=== PATIENT | male | born 1940 | race Caucasian/White ===

== ENCOUNTER 2017-03-30 00:45 | Inpatient (IN) | payer OTHER ==
[~2017-03-30] VITALS: Ht 182.9 cm; Wt 98.4 kg
--- NOTE | 2017-03-30 00:45 | NUR ---
Patient being evaluated by physician at [facility].
[2017-03-30 00:50] VITALS: BP 142/86
--- NOTE | 2017-03-30 00:55 | NUR ---
BIBA TO ER BED 8
[2017-03-30] MEDS ORDERED: ALBUTEROL SULFATE/IPRATROPIU 3 ML SOL IH ONE (01:05)
[2017-03-30] MEDS ORDERED: methylPREDNISolone SS 125 MG in WATER STERILE 2 ML IV ONE (01:05)
--- NOTE | 2017-03-30 01:08 | NUR ---
Edd morse in [facility] - 03/30/17 at 0405 by MEDMAYA Patient being evaluated by physician at bedside.
[2017-03-30] MEDS ORDERED: methylPREDNISolone SS 125 MG/2 ML VIAL ONE (01:09)
[2017-03-30 01:24] LABS: LYMPHOCYTES # (AUTO) 2.4 K/uL (2.0-11.5)
[2017-03-30 01:26] LABS: BASOPHILS # (AUTO) 0.3 K/uL (0.00-0.22); BASOPHILS % (AUTO) 2.1 % (0.0-2.0); EOSINOPHILS # (AUTO) 0.4 K/uL (0-0.4); EOSINOPHILS % (AUTO) 3.1 % (0.0-4.0); LYMPHOCYTES % (AUTO) 19.6 % (20.5-51.1); MEAN CORPUSCULAR HEMOGLOBIN 24 pg (27-31); MEAN CORPUSCULAR HGB CONC 30 g/dL (33-37); MEAN CORPUSCULAR VOLUME 79 fL (80-94); MONOCYTES # (AUTO) 0.8 K/uL (0.8-1.0); MONOCYTES % (AUTO) 6.8 % (1.7-9.3); NEUTROPHILS # (AUTO) 8.2 K/uL (1.8-7.7); NEUTROPHILS % (AUTO) 68.4 % (42.2-75.2); PLATELET COUNT (AUTO) 471 K/uL (140-450); RED BLOOD CELL COUNT(AUTO) 2.44 MIL/uL (4.20-6.10); RED CELL DISTRIBUTION WIDTH 19.1 % (11.6-13.7); WHITE BLOOD COUNT (AUTO) 12.1 K/uL (4.8-10.8)
[2017-03-30 01:36] LABS: ALBUMIN 3.6 g/dL (3.4-5.0); ANION GAP 18.2 (8-16); ASPARTATE AMINOTRANSFERASE 25 U/L (15-37); CARBON DIOXIDE 23.1 mmol/L (21-32); CHLORIDE 106 mmol/L (98-107); CREATININE 1.6 mg/dL (0.7-1.3); POTASSIUM 4.3 mmol/L (3.5-5.1); SODIUM SERUM 143 mmol/L (136-145); TOTAL BILIRUBIN 0.3 mg/dL (0.0-1.0); UREA NITROGEN, BLOOD 33 mg/dL (7-18)
[2017-03-30] MEDS ORDERED: AMLO10TA PO (01:46)
[2017-03-30] MEDS ORDERED: TAMS0.4C96 PO (01:46)
[2017-03-30] MEDS ORDERED: FENO145T PO (01:46)
[2017-03-30] MEDS ORDERED: LOSA50TA39 PO (01:46)
[2017-03-30] MEDS ORDERED: INSU100S5 IJ (01:46)
[2017-03-30] MEDS ORDERED: LANTUS SUBQ (01:46)
[2017-03-30] MEDS ORDERED: ATOR40TA40 PO (01:46)
[2017-03-30] MEDS ORDERED: METF500T PO (01:46)
[2017-03-30 01:57] LABS: GLUCOSE 466 mg/dL (74-106)
[2017-03-30 01:58] LABS: HEMATOCRIT 19.4 % (36-52); HEMOGLOBIN 5.8 g/dL (12.0-18.0)
[2017-03-30] MEDS ORDERED: INSULIN HUMAN REGULAR 100 UNITS/ML 10 ML VIAL SUBQ ONE (02:05)
--- NOTE | 2017-03-30 02:07 | NUR ---
INCREASED IPAP TO [address] RG
[2017-03-30] MEDS ORDERED: FUROSEMIDE 40 MG/4 ML VIAL IVP ONE (02:25)
--- NOTE | 2017-03-30 03:02 | NUR ---
Patient will be admitted to care of DR. RAY. Admited to TELEMETRY]. Will go to room 122 B Belongings list completed.
--- NOTE | 2017-03-30 03:45 | NUR ---
REPORT GIVEN TO ANDRE SPRAGUE.
[2017-03-30] MEDS ORDERED: NACL 0.9% 1,000 ML IV SCH (03:46)
[2017-03-30] MEDS ORDERED: MORPHINE SULFATE 2 MG/ML SYR IVP PRN (03:50)
[2017-03-30] MEDS ORDERED: ONDANSETRON 4 MG/2 ML VIAL IM/IVP PRN (03:50)
[2017-03-30] MEDS ORDERED: ACETAMINOPHEN 325 MG TAB PO PRN ×2 (03:50→12:27)
[2017-03-30] MEDS ORDERED: DOCUSATE SODIUM 100 MG GELCAP PO PRN (03:50)
[2017-03-30] MEDS ORDERED: HYDROcodone/APAP 7.5/325 MG 1 TAB PO PRN (03:50)
[2017-03-30 04:13] LABS: APPEARANCE,URINE CLEAR (CLEAR); BILIRUBIN,URINE NEGATIVE (NEGATIVE); BLOOD, URINE NEGATIVE (NEGATIVE); COLOR,URINE YELLOW (YELLOW); LEUKOCYTE ESTERASE ,URINE NEGATIVE (NEGATIVE); NITRITE, URINE NEGATIVE (NEGATIVE); PH,URINE 5.5 (5.0-9.0); UGLUCOSE 3+ (NEGATIVE)
[2017-03-30] MEDS ORDERED: ALBUTEROL SULFATE/IPRATROPIU 3 ML SOL IH PRN (04:20)
[2017-03-30] MEDS ORDERED: DEXTROSE 50% 50 ML SYR IVP PRN (04:20)
--- NOTE | 2017-03-30 04:23 | NUR ---
0418 TRANSPORTED PT TO THE FLOOR ON BIPAP WITH NO INCIDENT. PT STABLE AT THIS TIME.
--- NOTE | 2017-03-30 04:30 | NUR ---
PT BROUGHT TO UNIT FROM ER. PT AAOX4. NO S/S OF ACUTE DISTRESS. PT DENIES PAIN. IV SITE PATENT AND INTACT. FALL RISK INITIATED. AT BEDSIDE. ON BIPAP. PT ORIENTED TO ROOM. TELE IN PLACE. PLAN OF CARE DISCUSSED. PT VERBALIZED UNDERSTANDING. CALL LIGHT WITHIN REACH. SAFETY MEASURES ENSURED. WILL CONTINUE TO MONITOR.
[2017-03-30 04:36] VITALS: BP 103/65
[2017-03-30 04:52] LABS: RBC,URINE 0-5 (RARE) /HPF (0-5); WBC,URINE 0-5 (RARE) /HPF (0-5)
[2017-03-30 05:00] LABS: CHOL/HDL RATIO 6.3 (1-4.5); FREE T4 (FREE THYROXINE) 0.78 ng/dL (0.76-1.46); THYROID STIMULATING HORMONE 3.27 uIU/mL (0.34-3.74)
[2017-03-30] MEDS: methylPREDNISolone SS 125 MG/2 ML VIAL IVP SCH ×2 (05:40→13:00)
--- NOTE | 2017-03-30 05:59 | NUR ---
PT'S 1ST UNIT OF PRBC'S STARTED. UNIT VERIFIED WITH 2ND NURSE. NO S/S OF ACUTE DISTRESS OR ADVERSE REACTION. PT DENIES PAIN. WILL CONTINUE TO MONITOR AT BEDSIDE.
[2017-03-30] MEDS: ALBUTEROL SULFATE/IPRATROPIU 3 ML SOL IH SCH ×2 (06:00→12:14)
[2017-03-30] MEDS: BLOOD GLUCOSE MONITORING 1 DEV DEV FS SCH ×3 (06:12→17:17)
[2017-03-30] MEDS: INSULIN LISPRO SLIDING SCALE 100 UNITS/ML VIAL SUBQ PRN ×3 (06:12→17:47)
--- NOTE | 2017-03-30 06:14 | NUR ---
NO ADVERSE REACTION NOTED. PT DENIES PAIN. WILL CONTINUE TO MONITOR.
--- NOTE | 2017-03-30 07:30 | NUR ---
RECEIVED ON BED AAOX4. NO SOB NOTED. NO C/O PAIN AT THIS TIME. IV TO LT AC PATENT AND INTACT. CHEST, DIMINISHED AIR ENTRY TO THE BASES. PT IS ON BIPAP WITH FI02 OF 28%. ABDOMEN SOFT, BOWEL SOUNDS. NO EDEMA NOTED. NPO MAINTAINED. INSTRUCTED PT TO CALL FOR ASSISTANCE, CALL LIGHT WITHIN REACH. PT VERBALIZED UNDERSTANDING.
--- NOTE | 2017-03-30 07:31 | NUR ---
1 INIT PRBC ON GOING. NO BLOOD TRANSFUSION REACTION NOTED.
--- NOTE | 2017-03-30 07:45 | NUR ---
ENDORSED PLAN OF CARE TO DAY RN..
[2017-03-30 08:00] VITALS: BP 130/75
[2017-03-30] MEDS ORDERED: TAMSULOSIN 0.4 MG CAP PO SCH (08:30)
--- NOTE | 2017-03-30 08:32 | NUR ---
BIPAP CHECK, PT IS AWAKE WITH NO SIGNS OF DISTRESS NOTED
--- NOTE | 2017-03-30 08:50 | NUR ---
PER DR. Shiela LAZO PT OFF BIPAP AND PLACED ON 3LNC RN ULICES NOTIFIED
--- NOTE | 2017-03-30 08:55 | NUR ---
DR. BISHOP HERE TO SEE PT.
[2017-03-30] MEDS ORDERED: ATORVASTATIN 20 MG TAB PO SCH ×2 (09:00→10:25)
[2017-03-30] MEDS ORDERED: FENOFIBRATE 48 MG TAB PO SCH (09:00)
[2017-03-30] MEDS ORDERED: LOSARTAN 50 MG TAB PO SCH (09:00)
[2017-03-30] MEDS ORDERED: amLODIPine 5 MG TAB PO SCH (09:00)
[2017-03-30] MEDS ORDERED: ECOTRIN 81 MG TABEC PO SCH ×2 (09:00→10:25)
[2017-03-30] MEDS ORDERED: INSULIN DETEMIR 100 UNITS/ML 10 ML VIAL SUBQ SCH (09:00)
--- NOTE | 2017-03-30 09:00 | NUR ---
1 UNIT PRBC COMPLETED. NO BLOOD TRANSFUSION REACTIONS NOTED THE WHOLE TIME OF THE TRANSFUSION.
--- NOTE | 2017-03-30 09:03 | NUR ---
PATIENT HAS BEEN SCREENED AND CATEGORIZED MODERATE NUTRITION RISK. PATIENT WILL BE SEEN WITHIN 3-5 DAYS OF ADMISSION. 04/01/17-04/03/[address]
--- NOTE | 2017-03-30 09:44 | NUR ---
PT PLACED BACK ON BIPAP FOR RESPIRATORY DISTRESS AND BREATHING TX GIVEN WITH DUONEB 3ML WITH NO ADVERSE REACTION POST TX
[2017-03-30] MEDS ORDERED: LISINOPRIL 10 MG TAB PO SCH (10:25)
[2017-03-30] MEDS ORDERED: HEPARIN PER PHARMACY MC PRN (10:25)
[2017-03-30] MEDS ORDERED: hePARIN / DEXT 5% PREMIX 250 ML IV SCH (10:25)
[2017-03-30] MEDS ORDERED: LORazepam 2 MG/ML VIAL IVP SCH (11:00)
[2017-03-30 11:19] LABS: BASOPHILS # (AUTO) 0.1 K/uL (0.00-0.22); BASOPHILS % (AUTO) 0.7 % (0.0-2.0); EOSINOPHILS # (AUTO) 0.4 K/uL (0-0.4); HEMATOCRIT 25.7 % (36-52); HEMOGLOBIN 7.8 g/dL (12.0-18.0); LYMPHOCYTES # (AUTO) 0.9 K/uL (2.0-11.5); MEAN CORPUSCULAR HEMOGLOBIN 24 pg (27-31); MEAN CORPUSCULAR HGB CONC 30 g/dL (33-37); MEAN CORPUSCULAR VOLUME 78 fL (80-94); MONOCYTES # (AUTO) 0.1 K/uL (0.8-1.0); MONOCYTES % (AUTO) 0.7 % (1.7-9.3); NEUTROPHILS # (AUTO) 16.2 K/uL (1.8-7.7); NEUTROPHILS % (AUTO) 91.6 % (42.2-75.2); PLATELET COUNT (AUTO) 444 K/uL (140-450); RED BLOOD CELL COUNT(AUTO) 3.29 MIL/uL (4.20-6.10); RED CELL DISTRIBUTION WIDTH 17.5 % (11.6-13.7); WHITE BLOOD COUNT (AUTO) 17.7 K/uL (4.8-10.8)
--- NOTE | 2017-03-30 11:30 | NUR ---
BIPAP CHECK, PT IS SLEEPING
[2017-03-30 11:47] LABS: PROTHROMBIN TIME 10.9 secs (10.8-13.4)
[2017-03-30 12:00] VITALS: BP 108/73
--- NOTE | 2017-03-30 12:14 | NUR ---
BIPAP CHECK, I\L TX GIVEN WITH DUONEB 3ML WITH NO ADVERSE REACTION POST TX B\S ARE COARSE AND PT IS HAVING ECHO DONE Addendum: 03/30/17 at 1221 by Natalya Garcia RT DECREASED FIO2 TO 40% AND RN ULICES NOTIFIED
--- NOTE | 2017-03-30 12:15 | NUR ---
DR. LIZAMA HERE TO SEE PT.
[2017-03-30] MEDS ORDERED: FUROSEMIDE 20 MG TAB PO PRN (12:27)
[2017-03-30] MEDS ORDERED: METOPROLOL 25 MG TAB PO SCH ×2 (12:30→21:00)
--- NOTE | 2017-03-30 13:24 | NUR ---
1245 CALLED [facility] AND SPOKE WITH MIS CORTEZ CM TO INFORM HER OF PTS ADMISSION AND NEED FOR TRANSFER TO [facility] DUE TO TROPONIN ELEVATED TO 36. 1250 CALLED [facility] ADMITTING AND SPOKE WITH SEVERO WHO REQUESTED THAT IS CALL BACK IN 5 MINUTES. 1257 SPOKE WITH SEVERO IN ADMITTING AT [facility] REGARDING PT NEEDS TRANSFER FOR HIGHER LEVEL OF CARE AND PROVIDED DEMOGRAPHIC AND INSURANCE INFORMATION AND REQUESTED A TELEMETRY LEVEL OF CARE BED AND THAT DR CHRISTIANO SOSA WILL BE THE ACCEPTING PHYSICIAN. STATED THAT PHYSICIAN HAS NOT CALLED YET TO REQUEST THE BED. [address] HERNANDEZ AND INFORMED HIM THAT DR SOSA HAS NOT [facility] TO REQUEST THE INPATIENT BED. DR HERNANDEZ SAID HE WILL CONTACT THE PHYSICIAN. PER DR HERNANDEZ PT WILL REQUIRE TRANSFER ON BIPAP.
--- NOTE | 2017-03-30 13:25 | NUR ---
PT SEEN BY DR. BISHOP. SPOKE WITH RIKY DIRECTOR OF REGARDING THE TRANSFER TO HIGHER LEVEL CARE. DR. BISHOP WANTS TO HOLD THE LOPRESSOR AND ATIVAN. DR. RENE MADE AWARE.
--- NOTE | 2017-03-30 13:51 | NUR ---
BIPAP CHECK, DECREASED FIO2 TO 35% AND RN ULICES NOTIFIED FAMILY IS AT BEDSIDE PT IS AWAKE AND ALERT
--- NOTE | 2017-03-30 14:19 | NUR ---
1400 CALL RECEIVED FROM LOIS IN ADMITTING AT [facility] AND HE STATED THAT PT CAN TRANSFER TO ROOM 330A WITH ACCEPTING PHYSICIAN DR JARROD MCKENZIE. NURSE CAN CALL REPORT TO [phone] EX [phone]. CALLED AND INFORMED ULICES ASSIGNED NURSE OF BED AND NUMBER TO CALL REPORT. DR BISHOP INFORMED.
--- NOTE | 2017-03-30 14:25 | NUR ---
REPORT GIVEN TO ESTHER AT [facility]. PT IS GOING TO ROOM 330-A, Shin HARRIS - THE ACCEPTING DOCTOR. ESTHER MADE AWARE THAT PT WILL GET THE BLOOD TRANSFUSION BEFORE THE TRANSFER.
--- NOTE | 2017-03-30 14:38 | NUR ---
CALL TO MIS CORTEZ CM AT [facility] AND INFORMED HER THAT PT HAS A BED AT [facility] AND SHE PROVIDED AUTH# [id number] FOR INPATIENT AT [facility] AND ALSO SAME NUMBER FOR [facility] TRANSPORT.
[2017-03-30] MEDS ORDERED: IPRA3AMP IH (14:39)
[2017-03-30] MEDS ORDERED: ACET-1182 PO (14:39)
[2017-03-30] MEDS ORDERED: ATOR20TA40 PO (14:39)
[2017-03-30] MEDS ORDERED: DIPH25SG5 PO (14:39)
[2017-03-30] MEDS ORDERED: PANT40PD7 IVP (14:39)
[2017-03-30] MEDS ORDERED: FURO20TA8 PO (14:39)
--- NOTE | 2017-03-30 15:04 | NUR ---
bipap check, pt is awake and alert with family at bedside
--- NOTE | 2017-03-30 15:05 | NUR ---
1 UNIT PRBC STARTED ORDERED. WILL OBSERVE FOR ANY BLOOD TRANSFUSION REACTIONS WHILE ON TRANSFUSION.
--- NOTE | 2017-03-30 15:54 | NUR ---
CALLED ÁNGEL SPOKE TO [facility] AND ARRANGED TRANSPORTATION. PATIENT WILL TRANSFER TO [facility], ARRANGED FOR 6 PM TITLE CAMERA OPERATOR, PATIENT WILL GO WITH BIPAP.
[2017-03-30 16:00] VITALS: BP 134/80
--- NOTE | 2017-03-30 17:02 | NUR ---
BIPAP CHECK, PT IS SLEEPING NO CHANGES MADE
--- NOTE | 2017-03-30 17:33 | NUR ---
[facility] CALLED AND STATED THEY WILL BE DELAYED FOR ANOTHER HOUR. PT MADE AWARE.
--- NOTE | 2017-03-30 18:00 | NUR ---
1 UNIT PRBC COMPLETED. NO BLOOD TRANSFUSION REACTIONAS NOTED THE WHOLE TIME OF TRANSFUSION. LASIX PO GIVEN ORDERED.
--- NOTE | 2017-03-30 18:15 | NUR ---
[facility] WHEELED OUT PT IN STABLE CONDITION. NO COMPLAINTS MADE. PT AAOX4. PT'S SON WALTER SIGNED DISCHARGE PAPERS. PT IS TRANSFERRED TO [facility] WITH BIPAP AND ACLS TRANSPORT.
[2017-03-30] MEDS ORDERED: PANTOPRAZOLE 40 MG INJ VIAL IVP SCH (21:00)
[2017-03-31] MEDS ORDERED: methylPREDNISolone SS 40 MG/ML VIAL IVP SCH (05:00)
[2017-03-31 08:59] LABS: TRANSFERRIN 358 mg/dL (200-370)
[2017-03-31 16:15] LABS: FOLIC ACID > 20.00 ng/mL (>3.0)
[2017-03-31 16:22] LABS: FERRITIN 6 ng/mL (30-400)
== END 2017-03-30 18:15 | disposition short-term general hospital (02) | DRG 280 ==
LOC: MED 00:45 → MTU 03:02
PROVIDERS: ADMIT Family Medicine; ATTEND Family Medicine
PROC: 5A09357 Assistance with Respiratory Ventilation, Less than 24 Consecutive Hours, Continuous Positive Airway Pressure (ICD-10-PCS; principal; 2017-03-30)
PROC: 30233N1 Transfusion of Nonautologous Red Blood Cells into Peripheral Vein, Percutaneous Approach (ICD-10-PCS; 2017-03-30)
DX: I50.43 Acute on chronic combined systolic (congestive) and diastolic (congestive) heart failure (principal); J69.0 Pneumonitis due to inhalation of food and vomit; I21.4 Non-ST elevation (NSTEMI) myocardial infarction; J96.01 Acute respiratory failure with hypoxia; N17.0 Acute kidney failure with tubular necrosis; E87.2 Acidosis; D62 Acute posthemorrhagic anemia; J44.1 Chronic obstructive pulmonary disease with (acute) exacerbation; E11.51 Type 2 diabetes mellitus with diabetic peripheral angiopathy without gangrene; Z96.652 Presence of left artificial knee joint; E11.65 Type 2 diabetes mellitus with hyperglycemia; E78.5 Hyperlipidemia, unspecified; I11.0 Hypertensive heart disease with heart failure; D50.9 Iron deficiency anemia, unspecified; Z82.49 Family history of ischemic heart disease and other diseases of the circulatory system; Z79.4 Long term (current) use of insulin; Z79.84 Long term (current) use of oral hypoglycemic drugs
CPT/HCPCS: 36415; 36600; 71010; 80053; 81001; 82607; 82728; 82746; 82803; 82948; 83036; 83540; 83735; 83880; 84100; 84436; 84439; 84443; 84479; 84484; 85025; 85045; 85610; 85730; 86886; 86900; 86901; 86920; 87081; 93005; 93925; 93970; 94640; 94660; 96374; 96375; 99291; J1815; J1940; J2060; J2930; J7030; J7620; P9016; Q0092; Q0163

== ENCOUNTER 2018-11-23 00:19 | Inpatient (IN) | payer OTHER ==
[~2018-11-23] VITALS: Ht 172.7 cm; Wt 83.9 kg
[2018-11-23 00:19] VITALS: BP 194/120
[~2018-11-23 00:19] MED LIST: ACET-1182 PO; ALBU3SOL83 IH; AMLO10TA PO; ATOR20TA40 PO; ATOR40TA40 PO; DIPH25SG5 PO; FENO145T PO; FURO20TA8 PO; INSU100S5 IJ; LANTUS SUBQ; LOSA50TA66 PO; METF500T PO; PANT40PD7 IVP
--- NOTE | 2018-11-23 00:20 | NUR ---
TO ED 02 VIA AMBULANCE [facility].
--- NOTE | 2018-11-23 00:25 | NUR ---
PT TO ED BIB FOR C/O GEN WEAKNESS SUDDEN ONSET AT HOME. PER PT "I WAS WALKING THEN I FELT WEAK AND I THINK I PEED MY PANTS". PT DENIES ANY LOC. PT IS ALERT TO NAME, BIRTHDAY, EVENT, AND PLACE. NO NEURO DEFECITS NOTED. PT PLACED INTO BED, PENDING MD VELASCO.
[2018-11-23] MEDS ORDERED: hydrALAZINE 20 MG/ML VIAL IVP ONE ×2 (00:40→02:40)
[2018-11-23 01:06] LABS: BASOPHILS # (AUTO) 0.1 K/uL (0.00-0.22); BASOPHILS % (AUTO) 0.7 % (0.0-2.0); EOSINOPHILS # (AUTO) 0.2 K/uL (0-0.4); EOSINOPHILS % (AUTO) 2.1 % (0.0-4.0); HEMATOCRIT 43.6 % (36-52); HEMOGLOBIN 14.6 g/dL (12.0-18.0); LYMPHOCYTES # (AUTO) 1.8 K/uL (2.0-11.5); LYMPHOCYTES % (AUTO) 16.8 % (20.5-51.1); MEAN CORPUSCULAR HEMOGLOBIN 31 pg (27-31); MEAN CORPUSCULAR HGB CONC 33 g/dL (33-37); MEAN CORPUSCULAR VOLUME 93.3 fL (80-94); MONOCYTES # (AUTO) 1.1 K/uL (0.8-1.0); NEUTROPHILS # (AUTO) 7.4 K/uL (1.8-7.7); NEUTROPHILS % (AUTO) 70.4 % (42.2-75.2); PLATELET COUNT (AUTO) 265 K/uL (140-450); RED BLOOD CELL COUNT(AUTO) 4.68 MIL/uL (4.20-6.10); RED CELL DISTRIBUTION WIDTH 14.6 % (11.6-13.7); WHITE BLOOD COUNT (AUTO) 10.6 K/uL (4.8-10.8)
[2018-11-23 01:16] LABS: ANION GAP 11.1 (8-16); CARBON DIOXIDE 27.8 mmol/L (21-32); CHLORIDE 103 mmol/L (98-107); CREATININE 1.1 mg/dL (0.7-1.3); GLUCOSE 175 mg/dL (74-106); POTASSIUM 3.9 mmol/L (3.5-5.1); SODIUM SERUM 138 mmol/L (136-145); UREA NITROGEN, BLOOD 27 mg/dL (7-18)
[2018-11-23 01:22] LABS: ALBUMIN 3.5 g/dL (3.4-5.0); ASPARTATE AMINOTRANSFERASE 24 U/L (15-37); TOTAL BILIRUBIN 0.3 mg/dL (0.0-1.0)
--- NOTE | 2018-11-23 01:30 | NUR ---
PT STILL HYPERTENSIVE. ER MD AWARE. ORDER FOR CLONIDINE RECIEVED.
[2018-11-23] MEDS ORDERED: cloNIDine 0.1 MG TAB PO ONE (01:55)
[2018-11-23 01:56] LABS: APPEARANCE,URINE CLEAR (CLEAR); BILIRUBIN,URINE NEGATIVE (NEGATIVE); BLOOD, URINE NEGATIVE (NEGATIVE); COLOR,URINE YELLOW (YELLOW); LEUKOCYTE ESTERASE ,URINE NEGATIVE (NEGATIVE); NITRITE, URINE NEGATIVE (NEGATIVE); UGLUCOSE TRACE (NEGATIVE)
[2018-11-23 02:06] LABS: RBC,URINE NONE SEEN /HPF (0-5); WBC,URINE 0-5 /HPF (0-5)
[2018-11-23] MEDS ORDERED: ONDANSETRON 4 MG/2 ML VIAL IVP ONE (02:40)
[2018-11-23] MEDS ORDERED: ACETAMINOPHEN 325 MG TAB PO PRN (02:55)
[2018-11-23] MEDS ORDERED: DOCUSATE SODIUM 100 MG GELCAP PO PRN (02:55)
[2018-11-23] MEDS ORDERED: ONDANSETRON 4 MG/2 ML VIAL IM/IVP PRN (02:55)
[2018-11-23] MEDS ORDERED: HYDROcodone/APAP 7.5/325 MG 1 TAB PO PRN (02:55)
[2018-11-23] MEDS ORDERED: LOSARTAN 50 MG TAB PO SCH ×2 (03:25→09:00)
--- NOTE | 2018-11-23 03:26 | NUR ---
PT ARRIVED TO UNIT VIA GURNEY. RECEIVED REPORT FROM ER NURSE TRAN-RN AT BEDSIDE. PT AMBULATED TO BED UNASSISTED. AOX4, ON 2L/NC WITH LEFT HAND #22G RUNNING NS @10ML/HR. DISCUSSED PLAN OF CARE AND PT VERBALIZED UNDERSTANDING. BP DECREASED FROM 180/103 TO 169/109 TO 150/84. NO S/S OF RESPIRATORY DISTRESS OR DISCOMFORT NOTED AT THIS TIME. BED IN LOWEST POSITION, BED BREAKS ON, BOTH SIDE RAILS UP. BEDSIDE TABLE AND CALL LIGHT ARE WITHIN REACH. WILL CONTINUE TO MONITOR.
[2018-11-23] MEDS: NACL 0.9% 1,000 ML IV SCH (03:30)
--- NOTE | 2018-11-23 03:39 | NUR ---
Patient will be admitted to care of DR LIM. Admited to TELE. Will go to room 108-B. Belongings list completed. Report to CELESTINE ALVARADO.
[2018-11-23 03:40] LABS: PROTHROMBIN TIME 10.3 secs (10.8-13.4)
[2018-11-23] MEDS ORDERED: hydrALAZINE 20 MG/ML VIAL IVP PRN (03:45)
[2018-11-23 03:46] LABS: CHOL/HDL RATIO 5.4 (1-4.5); FREE T4 (FREE THYROXINE) 0.82 ng/dL (0.76-1.46); MAGNESIUM 1.9 mg/dL (1.8-2.4); PHOSPHORUS 4.3 mg/dL (2.5-4.9); THYROID STIMULATING HORMONE 4.14 uIU/mL (0.34-3.74)
[2018-11-23] MEDS ORDERED: DEXTROSE 50% 50 ML SYR IVP PRN (03:50)
[2018-11-23 04:00] VITALS: BP 150/84
[2018-11-23] MEDS ORDERED: amLODIPine 5 MG TAB PO SCH (04:15)
--- NOTE | 2018-11-23 04:27 | NUR ---
SCHEDULED MEDICATION NORVASC GIVEN AND TOLERATED WELL. NO S/S OF RESPIRATORY DISTRESS OR DISCOMFORT NOTED AT THIS TIME. WILL CONTINUE TO MONITOR.
--- NOTE | 2018-11-23 06:00 | NUR ---
BLOOD GLUCOSE 359- WILL ADMINISTER INSULIN COVERAGE. NO S/S OF RESPIRATORY DISTRESS OR DISCOMFORT NOTED AT THIS TIME. WILL CONTINUE TO MONITOR.
[2018-11-23] MEDS: INSULIN LISPRO SLIDING SCALE 100 UNITS/ML VIAL SUBQ PRN ×3 (06:47→21:23)
[2018-11-23] MEDS: BLOOD GLUCOSE MONITORING 1 DEV DEV FS SCH ×4 (06:48→21:16)
--- NOTE | 2018-11-23 06:48 | NUR ---
INSULIN COVERAGE GIVEN AND TOLERATED WELL. NO S/S OF RESPIRATORY DISTRESS OR DISCOMFORT NOTED AT THIS TIME. WILL CONTINUE TO MONITOR.
--- NOTE | 2018-11-23 07:19 | NUR ---
ENDORSED PT CARE TO DAY SHIFT NURSE LEFTY-RN FOR CONTINUITY OF CARE.
--- NOTE | 2018-11-23 07:20 | NUR ---
RECEIVED BEDSIDE REPORT FROM SOLID WASTE LANDFILL TECHNICIAN NURSE. PATIENT IS A/O X4, SITTING. NO SIGNS OF DISTRESS. 2L NC 96%. IV NS @10ML/H Addendum: 11/23/18 at 1123 by Uyen Florence RN LEFT HAND IV 22G. CLEAN DRY AND INTACT. PATIENT IS AMBULATORY. PT IS CONTINENT. PATIENT ABLE TO MAKE NEEDS KNOWN. CALL LIGHT WITHIN REACH. BED IN LOWEST POSITION. WILL CONTINUE TO MONITOR.
[2018-11-23 08:00] VITALS: BP 129/71
[2018-11-23] MEDS ORDERED: metFORMIN 500 MG TAB PO SCH ×3 (08:00→21:00)
[2018-11-23] MEDS ORDERED: ATORVASTATIN 20 MG TAB PO SCH (09:00)
[2018-11-23] MEDS ORDERED: INSULIN LANTUS 100 UNITS/ML 10 ML VIAL SUBQ SCH ×2 (09:00→13:00)
[2018-11-23] MEDS ORDERED: FENOFIBRATE 48 MG TAB PO SCH (09:00)
[2018-11-23] MEDS: LACTOBACILLUS RHAMNOSUS GG 1 EACH CAP PO SCH (09:21)
[2018-11-23] MEDS: amLODIPine 5 MG TAB PO SCH (09:22)
[2018-11-23] MEDS: ASPIRIN 81 MG TAB.CHEW PO SCH (09:23)
--- NOTE | 2018-11-23 09:28 | NUR ---
ADMINISTERED MEDS. PATIENT TOLERATED WELL. EDUCATED ON SIDE EFFECTS. PATIENT ABLE TO MAKE NEEDS KNOWN. CALL LIGHT WITHIN REACH
--- NOTE | 2018-11-23 10:04 | NUR ---
PATIENT HAS BEEN SCREENED AND CATEGORIZED HIGH NUTRITION RISK. PATIENT WILL BE SEEN WITHIN 1-2 DAYS OF ADMISSION. 11/23/18-11/24/[address]
[2018-11-23] MEDS ORDERED: MEDICATION REC. PHARMACY CONS. 1 EA MISC MC PRN (11:15)
--- NOTE | 2018-11-23 11:23 | NUR ---
PATIENT IN RESTROOM. PT HAS STEADY GAIT. NO COMPLAINTS AT THIS TIME. WILL CONTINUE TO MONITOR. PT AWARE HE WILL BE TRANSFERRED [facility].
[2018-11-23 12:00] VITALS: BP 139/82
[2018-11-23] MEDS ORDERED: METF500T PO (12:10)
[2018-11-23] MEDS ORDERED: FURO-572 PO (12:11)
[2018-11-23] MEDS ORDERED: ATOR40TA40 PO (12:11)
[2018-11-23] MEDS ORDERED: POTA10TE30 PO (12:11)
[2018-11-23] MEDS ORDERED: INSU300S SC (12:11)
[2018-11-23] MEDS ORDERED: SYN.05 PO (12:11)
[2018-11-23] MEDS ORDERED: GLIP5TER PO ×2 (12:11)
[2018-11-23] MEDS ORDERED: FUROSEMIDE 40 MG TAB PO SCH (12:19)
--- NOTE | 2018-11-23 13:00 | NUR ---
ADMINISTERED MEDS. PT TOLERATED WELL. PT EDUCATED ON SIDE EFFECTS. NO PT COMPLAINTS AT THIS TIME. PT STATES NO PAIN. BED IN LOWEST POSITION. CALL LIGHT WITHIN REACH.
[2018-11-23 13:32] LABS: BASOPHILS # (AUTO) 0.1 K/uL (0.00-0.22); BASOPHILS % (AUTO) 0.6 % (0.0-2.0); EOSINOPHILS # (AUTO) 0.1 K/uL (0-0.4); EOSINOPHILS % (AUTO) 1.4 % (0.0-4.0); HEMATOCRIT 39.4 % (36-52); HEMOGLOBIN 13.1 g/dL (12.0-18.0); LYMPHOCYTES % (AUTO) 21.7 % (20.5-51.1); MEAN CORPUSCULAR HEMOGLOBIN 31 pg (27-31); MEAN CORPUSCULAR HGB CONC 33 g/dL (33-37); MEAN CORPUSCULAR VOLUME 93.4 fL (80-94); MONOCYTES # (AUTO) 0.9 K/uL (0.8-1.0); MONOCYTES % (AUTO) 9.4 % (1.7-9.3); NEUTROPHILS # (AUTO) 6.2 K/uL (1.8-7.7); NEUTROPHILS % (AUTO) 66.9 % (42.2-75.2); PLATELET COUNT (AUTO) 265 K/uL (140-450); RED BLOOD CELL COUNT(AUTO) 4.21 MIL/uL (4.20-6.10); RED CELL DISTRIBUTION WIDTH 15.1 % (11.6-13.7); WHITE BLOOD COUNT (AUTO) 9.3 K/uL (4.8-10.8)
[2018-11-23 14:00] LABS: ANION GAP 15.8 (8-16); CARBON DIOXIDE 25.6 mmol/L (21-32); CHLORIDE 102 mmol/L (98-107); CREATININE 1.5 mg/dL (0.7-1.3); GLUCOSE 278 mg/dL (74-106); POTASSIUM 4.4 mmol/L (3.5-5.1); SODIUM SERUM 139 mmol/L (136-145); UREA NITROGEN, BLOOD 33 mg/dL (7-18)
[2018-11-23] MEDS ORDERED: NACL 0.9% 500 ML IV SCH (14:10)
--- NOTE | 2018-11-23 15:10 | NUR ---
PATIENT RECEIVING NS BOLUS OF 500ML AT THIS TIME. WILL CONTINUE TO MONITOR THE PATIENT.
[2018-11-23 16:00] VITALS: BP 132/76
--- NOTE | 2018-11-23 16:24 | NUR ---
PATIENT IS SLEEPING. NO SIGNS OF DISTRESS ON RA. WILL CONTINUE TO MONITOR THE PATIENT
--- NOTE | 2018-11-23 18:00 | NUR ---
PATIENT IS SLEEPING. NO SIGNS OF DISTRESS. WILL CONTINUE TO MONITOR
--- NOTE | 2018-11-23 19:25 | NUR ---
GAVE BEDSIDE REPORT TO BUYER TOBACCO HEAD NURSE. PATIENT ENDORSED IN STABLE CONDITION
--- NOTE | 2018-11-23 19:26 | NUR ---
RECEIVED BEDSIDE REPORT FROM LEFTY SPRAGUE, IV TO L HAND 22G PATENT, INTACT INFUSING NS @ 10ML/HR, INFUSING WELL, PT ON ROOM AIR NO SOB, INITIAL ASSESSMENT DONE, ALL SAFETY PRECAUTION MET, CALL LIGHT WITHIN REACH, WILL CONTINUE TO MONITOR.
[2018-11-23 20:00] VITALS: BP 130/55
[2018-11-23] MEDS: LOSARTAN 50 MG TAB PO SCH (21:15)
[2018-11-23] MEDS: glipiZIDE ER 5 MG TABER PO SCH (21:16)
--- NOTE | 2018-11-23 21:23 | NUR ---
DUE MEDICATION ADMINISTERED, PT TOLERATED WELL, NO DISTRESS NOTED, CALL LIGHT WITHIN REACH, WILL CONTINUE TO MONITOR.
[2018-11-24] VITALS (7 sets, daily range): BP systolic 130–176; BP diastolic 55–92
--- NOTE | 2018-11-24 00:10 | NUR ---
CHECKED ON PT, PT SLEEPING, V/S TAKEN, WNL, CALL LIGHT WITHIN REACH, WILL CONTINUE TO MONITOR.
--- NOTE | 2018-11-24 02:14 | NUR ---
PT SLEEPING, CALL LIGHT WITHIN REACH,WILL CONTINUE TO MONITOR.
[2018-11-24] MEDS: NACL 0.9% 1,000 ML IV SCH ×2 (03:30→21:42)
--- NOTE | 2018-11-24 04:06 | NUR ---
CHECKED ON PT, PT SLEEPING, V/S TAKEN, WNL, CALL LIGHT WITHIN REACH, WILL CONTINUE TO MONITOR.
[2018-11-24] MEDS: LEVOTHYROXINE 0.05 MG TAB PO SCH (05:42)
[2018-11-24] MEDS: BLOOD GLUCOSE MONITORING 1 DEV DEV FS SCH ×4 (05:44→20:28)
--- NOTE | 2018-11-24 07:30 | NUR ---
ENDORSED PT TO DAY SHIFT NURSE RABIA RN, PT STABLE, NO DISTRESS NOTED, CALL LIGHT WITHIN REACH.
--- NOTE | 2018-11-24 07:31 | NUR ---
REPORT RECEIVED FROM PYRIDINE RECOVERY OPERATOR NURSE, PT AWAKE ALERT, RESP EVEN UNLABORED, SKIN WARM DRY COLOR WNL, PT DENIES ANY CHEST PAIN OR SOB, APPEARS IN NO ACUTE DISTRESS, POC REVIEWED, PT DENIES ANY IMMEDIATE NEEDS, ALL SAFETY MEASURES IN PLACE, WILL CONTINUE TO MONITOR.
[2018-11-24 08:06] LABS: ANION GAP 10.2 (8-16); CARBON DIOXIDE 30.4 mmol/L (21-32); CHLORIDE 105 mmol/L (98-107); CREATININE 1.3 mg/dL (0.7-1.3); GLUCOSE 58 mg/dL (74-106); POTASSIUM 3.6 mmol/L (3.5-5.1); SODIUM SERUM 142 mmol/L (136-145); UREA NITROGEN, BLOOD 34 mg/dL (7-18)
[2018-11-24 08:34] LABS: BASOPHILS # (AUTO) 0.1 K/uL (0.00-0.22); BASOPHILS % (AUTO) 0.8 % (0.0-2.0); EOSINOPHILS # (AUTO) 0.3 K/uL (0-0.4); EOSINOPHILS % (AUTO) 4.1 % (0.0-4.0); HEMATOCRIT 38.2 % (36-52); HEMOGLOBIN 12.7 g/dL (12.0-18.0); LYMPHOCYTES # (AUTO) 2.3 K/uL (2.0-11.5); LYMPHOCYTES % (AUTO) 29.2 % (20.5-51.1); MEAN CORPUSCULAR HEMOGLOBIN 31 pg (27-31); MEAN CORPUSCULAR HGB CONC 33 g/dL (33-37); MEAN CORPUSCULAR VOLUME 93.7 fL (80-94); MONOCYTES # (AUTO) 0.8 K/uL (0.8-1.0); MONOCYTES % (AUTO) 10.6 % (1.7-9.3); NEUTROPHILS # (AUTO) 4.4 K/uL (1.8-7.7); NEUTROPHILS % (AUTO) 55.3 % (42.2-75.2); PLATELET COUNT (AUTO) 245 K/uL (140-450); RED BLOOD CELL COUNT(AUTO) 4.08 MIL/uL (4.20-6.10); RED CELL DISTRIBUTION WIDTH 15.4 % (11.6-13.7)
[2018-11-24] MEDS ORDERED: LISINOPRIL 10 MG TAB PO SCH (09:00)
[2018-11-24] MEDS: CLINICAL MONITORING MC SCH (09:00)
[2018-11-24] MEDS ORDERED: INSULIN LANTUS 100 UNITS/ML 10 ML VIAL SUBQ SCH ×2 (09:00→16:50)
[2018-11-24] MEDS: ASPIRIN 81 MG TAB.CHEW PO SCH (09:00)
[2018-11-24] MEDS: ATORVASTATIN 20 MG TAB PO SCH (09:36)
[2018-11-24] MEDS: FUROSEMIDE 20 MG TAB PO SCH (09:37)
[2018-11-24] MEDS: LOSARTAN 50 MG TAB PO SCH ×2 (09:38→20:35)
[2018-11-24] MEDS: amLODIPine 5 MG TAB PO SCH (09:38)
[2018-11-24] MEDS: LACTOBACILLUS RHAMNOSUS GG 1 EACH CAP PO SCH (09:39)
[2018-11-24] MEDS: glipiZIDE ER 5 MG TABER PO SCH ×2 (09:40→20:35)
--- NOTE | 2018-11-24 10:05 | NUR ---
PT RESTING QUIETLY IN NAD, RESP EVEN UNLABORED, AROUSES EASILY, WILL CONTINUE TO MONTOR.
--- NOTE | 2018-11-24 12:23 | NUR ---
PT SITTING UP AT SIDE OF BED EATING LUNCH
--- NOTE | 2018-11-24 14:12 | NUR ---
WALKING AROUND HALLWAY WITH PHYSICAL THERAPY
--- NOTE | 2018-11-24 15:50 | NUR ---
11/24/18 RD INITIAL ASSESSMENT COMPLETED PLEASE REFER TO NUTRITION ASSESSMENT UNDER CARE ACTIVITY FOR ESTIMATED NUTRITIONAL NEEDS. 1. CONTINUE CCHO 60 GM AND CARDIAC DIET TOLERATED 2. RD TO PROVIDE NUTRITION EDUCATION ON DIABETES 3. RD TO FOLLOW-UP 5-7 DAYS, LOW RISK JOE AMBROCIO, RD
[2018-11-24] MEDS ORDERED: MECLIZINE 25 MG TAB PO PRN (16:30)
--- NOTE | 2018-11-24 16:36 | NUR ---
DR MINOR AWARE OF ELEVATED BP 163/93, PT DENIES ANY PAIN OR DISCOMFORT, DENIES ANY OTHER SYMPTOMS, WILL MONITOR.
[2018-11-24] MEDS: INSULIN LISPRO SLIDING SCALE 100 UNITS/ML VIAL SUBQ PRN ×2 (17:31→20:36)
--- NOTE | 2018-11-24 17:42 | NUR ---
PT UNDER GOING ECHO, FAMILY AT BEDSIDE.
--- NOTE | 2018-11-24 19:05 | NUR ---
ROUNDED ON PT. PT JUST RETURNED FROM AMBULATION IN HALLWAY WITH FAMILY. PT NOW SITTING IN BED. NO VISIBLE SIGNS OF DISTRESS. WILL CONTINUE TO MONITOR.
--- NOTE | 2018-11-24 19:30 | NUR ---
REPORT GIVEN TO IMPORT/EXPORT ADMINISTRATOR NURSE, PT IN STABLE CONDITION.
--- NOTE | 2018-11-24 19:31 | NUR ---
RECEIVED BEDSIDE REPORT FROM DAY SHIFT RN, PATIENT RESTING IN BED, NO SIGNS OF DISTRESS, CALL LIGHT IN REACH, BED IN LOW POSITION. WILL CONTINUE TO MONITOR.
--- NOTE | 2018-11-24 20:36 | NUR ---
ADMINISTERED SCHEDULED MEDICATIONS, PATIENT TOLERATED WELL. PATIENT RESTING COMFORTABLY IN BED WITH NO SIGNS OF DISTRESS, WILL CONTINUE TO MONITOR.
[2018-11-25] VITALS: BP 153/87
[2018-11-25 00:03] VITALS: BP 144/81
[2018-11-25 00:06] VITALS: BP 168/92
--- NOTE | 2018-11-25 01:42 | NUR ---
PT ORTHOSTATIC BP WAS TAKEN SUPINE 153-87 HR-63,SITTING 144/81 HR-80,STANDING 168/82 HR-84. PT NO S/S OF ANY DIZZINESS NOR DISCOMFORT NOTED. DR. RONDON,RESIDENT MADE AWARE. NO NEW ORDER MADE. WILL CONTINUE TO MONITOR.
--- NOTE | 2018-11-25 02:50 | NUR ---
PATIENT SLEEPING COMFORTABLY IN BED, NO SIGNS OF DISTRESS ON RA, BED LOW, CALL LIGHT IN REACH. WILL CONTINUE TO MONITOR.
[2018-11-25 04:12] VITALS: BP 160/102
--- NOTE | 2018-11-25 04:14 | NUR ---
BP ELEVATED 160/102, HR-66. PT IS ASYMPTOMATIC, DENIES ANY H/A, DIZZINESS. DR. RONDON ,RESIDENT .WILL MAKE ORDER.
[2018-11-25] MEDS ORDERED: cloNIDine 0.1 MG TAB PO PRN (04:20)
[2018-11-25] MEDS: BLOOD GLUCOSE MONITORING 1 DEV DEV FS SCH ×3 (05:15→11:45)
--- NOTE | 2018-11-25 05:57 | NUR ---
LATEST BP 142/87,HR-82. NO S/S OF ANY DISCOMFORT NOTED.
[2018-11-25] MEDS: LEVOTHYROXINE 0.05 MG TAB PO SCH (06:14)
[2018-11-25 06:48] LABS: BASOPHILS # (AUTO) 0.1 K/uL (0.00-0.22); BASOPHILS % (AUTO) 0.7 % (0.0-2.0); EOSINOPHILS # (AUTO) 0.3 K/uL (0-0.4); EOSINOPHILS % (AUTO) 4.1 % (0.0-4.0); HEMOGLOBIN 13.1 g/dL (12.0-18.0); LYMPHOCYTES # (AUTO) 2.3 K/uL (2.0-11.5); LYMPHOCYTES % (AUTO) 29.1 % (20.5-51.1); MEAN CORPUSCULAR HEMOGLOBIN 31 pg (27-31); MEAN CORPUSCULAR HGB CONC 34 g/dL (33-37); MEAN CORPUSCULAR VOLUME 93.3 fL (80-94); MONOCYTES # (AUTO) 0.7 K/uL (0.8-1.0); MONOCYTES % (AUTO) 9.6 % (1.7-9.3); NEUTROPHILS # (AUTO) 4.4 K/uL (1.8-7.7); NEUTROPHILS % (AUTO) 56.5 % (42.2-75.2); PLATELET COUNT (AUTO) 249 K/uL (140-450); RED BLOOD CELL COUNT(AUTO) 4.18 MIL/uL (4.20-6.10); RED CELL DISTRIBUTION WIDTH 15.1 % (11.6-13.7); WHITE BLOOD COUNT (AUTO) 7.7 K/uL (4.8-10.8)
--- NOTE | 2018-11-25 06:55 | NUR ---
BLOOD SUGAR WAS CHECKED AFTER PT TOOK SOME JUICE AND CRACKERS, RESULT 126.
[2018-11-25 06:57] LABS: ANION GAP 10.7 (8-16); CHLORIDE 107 mmol/L (98-107); POTASSIUM 3.7 mmol/L (3.5-5.1); SODIUM SERUM 143 mmol/L (136-145)
[2018-11-25 06:58] LABS: CREATININE 1.1 mg/dL (0.7-1.3); GLUCOSE 48 mg/dL (74-106); UREA NITROGEN, BLOOD 28 mg/dL (7-18)
--- NOTE | 2018-11-25 07:31 | NUR ---
GAVE BEDSIDE REPORT TO DAY SHIFT RN, ENDORSED IN STABLE CONDITION.
--- NOTE | 2018-11-25 07:32 | NUR ---
RECEIVED PT FROM THE TIMBER KILLER RN AT BEDSIDE FOR CONTINUITY OF CARE. PT IS AWAKE AND ORIENTED. INTRODUCED MYSELF AND UPDATED THE BOARD. PT IS ON ROOM AIR. V/S WITHIN NORMAL LIMITS. PT IS HERE FOR HYPERTENSIVE URGENCY. PT'S BP HAS BEEN CONTROLLED. DOING 100%BETTER PER PT. PT IS AMBULATORY, STEADY GAIT. SKIN INTACT. LABS ARE WNL. TROPONIN #2 IS [address] LIM AND TEAM WAS HERE. PLAN FOR TODAY: D/C HOME. WILL CONTINUE TO MONITOR PT.
[2018-11-25 08:00] VITALS: BP 139/86
[2018-11-25] MEDS: ATORVASTATIN 20 MG TAB PO SCH (08:55)
[2018-11-25] MEDS: FUROSEMIDE 20 MG TAB PO SCH (08:55)
[2018-11-25] MEDS: CLINICAL MONITORING MC SCH (08:55)
[2018-11-25] MEDS: LACTOBACILLUS RHAMNOSUS GG 1 EACH CAP PO SCH (08:55)
[2018-11-25] MEDS: amLODIPine 5 MG TAB PO SCH (08:56)
[2018-11-25] MEDS: LOSARTAN 50 MG TAB PO SCH (08:56)
[2018-11-25] MEDS: glipiZIDE ER 5 MG TABER PO SCH (08:57)
[2018-11-25] MEDS ORDERED: INSULIN LANTUS 100 UNITS/ML 10 ML VIAL SUBQ SCH (09:00)
--- NOTE | 2018-11-25 09:00 | NUR ---
ADMINISTERED MORNING MEDS. PT TOLERATED WELL. ANSWERED ALL QUESTIONS. WILL CONTINUE TO MONITOR PT.
[2018-11-25] MEDS ORDERED: LOSA100T1 PO (11:13)
[2018-11-25] MEDS ORDERED: AMLO10TA PO (11:14)
[2018-11-25] MEDS: INSULIN LISPRO SLIDING SCALE 100 UNITS/ML VIAL SUBQ PRN (11:51)
[2018-11-25 12:00] VITALS: BP 159/87
--- NOTE | 2018-11-25 12:50 | NUR ---
DC INSTRUCTIONS GIVEN TO PT. VERBALIZED UNDERSTANDING. REMOVED IV, CANNULA INTACT. NO BLEEDING NOTED. PT DIDN'T HAVE ANY CLEAN CLOTHES. LEFT WITH TRANSPORT GOWN ON. PT HAS PERSONAL BELONGINGS GATHERED, INCLUDING HIS BLANKET AND PHONE, SOILED CLOTHING. WILL GET WHEELCHAIR ONCE CALLS RE HER ARRIVAL.
--- NOTE | 2018-11-25 13:05 | NUR ---
WHEELED PT OUT TO THE ROUND ABOUT TO HIS CAR. WAITING FOR PT IN THE CAR. INSTRUCTED RE F/U APPT AND BP MEDS AND BS CHECKS, DIET AND EXERCISE. VERBALIZED UNDERSTANDING. PT IN STABLE CONDITION.
== END 2018-11-25 13:05 | disposition home or self-care (01) | DRG 78 ==
LOC: MED 00:19 → MTU 02:56 → MMU 11:15
PROVIDERS: ADMIT General Practice; ATTEND General Practice
DX: I67.4 Hypertensive encephalopathy (principal); I16.9 Hypertensive crisis, unspecified; I25.10 Atherosclerotic heart disease of native coronary artery without angina pectoris; J44.9 Chronic obstructive pulmonary disease, unspecified; E11.9 Type 2 diabetes mellitus without complications; I10 Essential (primary) hypertension; E78.5 Hyperlipidemia, unspecified; Z96.652 Presence of left artificial knee joint; M19.90 Unspecified osteoarthritis, unspecified site; E03.9 Hypothyroidism, unspecified; Z95.1 Presence of aortocoronary bypass graft
CPT/HCPCS: 36415; 70450; 71045; 80048; 80053; 81001; 82140; 82948; 83036; 83605; 83690; 83735; 83880; 84100; 84439; 84443; 84484; 85025; 85610; 85730; 87040; 87081; 87086; 93005; 93880; 93976; 96374; 96375; 96376; 99285; J0360; J1644; J1815; J2405; J7030; Q0092

== ENCOUNTER 2023-07-07 09:56 | Inpatient (IN) | payer OTHER ==
[~2023-07-07] VITALS: Ht 175.3 cm; Wt 83.7 kg
[~2023-07-07 09:56] MED LIST changes: -ACET-1182 PO; -ALBU3SOL83 IH; -ATOR20TA40 PO; -DIPH25SG5 PO; -FENO145T PO; +FURO-572 PO; -FURO20TA8 PO; +GLIP5TER PO; +INSU300S SC; -LANTUS SUBQ; +LOSA-272 PO; -LOSA50TA66 PO; +METF-346 PO; -METF500T PO; -PANT40PD7 IVP; +POTA10TA70 PO; +SYN.05 PO
[2023-07-07 10:04] VITALS: BP 115/79; PULSE 92; RESP 17; TEMP 97.6; O2SAT 98
[2023-07-07] MEDS ORDERED: NACL 0.9% 1,000 ML IV ONE (10:40)
[2023-07-07 11:45] LABS: BASOPHILS % (AUTO) 0.5 % (0.0-2.0); NEUTROPHILS # (AUTO) 7.8 K/uL (1.8-7.7); RED BLOOD CELL COUNT(AUTO) 2.06 MIL/uL (4.20-6.10); WHITE BLOOD COUNT (AUTO) 9.4 K/uL (4.8-10.8)
[2023-07-07] MEDS ORDERED: ONDANSETRON 4 MG/2 ML VIAL IVP ONE (11:45)
[2023-07-07 11:51] LABS: LYMPHOCYTES # (AUTO) 0.9 K/uL (2.0-11.5); LYMPHOCYTES % (AUTO) 9.2 % (20.5-51.1); MEAN CORPUSCULAR HEMOGLOBIN 25 pg (27-31); MEAN CORPUSCULAR HGB CONC 31 g/dL (33-37); MEAN CORPUSCULAR VOLUME 80.2 fL (80-94); MONOCYTES # (AUTO) 0.6 K/uL (0.8-1.0); MONOCYTES % (AUTO) 6.8 % (1.7-9.3); NEUTROPHILS % (AUTO) 83.5 % (42.2-75.2); PLATELET COUNT (AUTO) 322 K/uL (140-450); RED CELL DISTRIBUTION WIDTH 21.9 % (11.6-13.7)
[2023-07-07 11:55] LABS: HEMOGLOBIN 5.1 g/dL (12.0-18.0)
[2023-07-07 11:56] LABS: HEMATOCRIT 16.5 % (36-52)
[2023-07-07 12:11] LABS: ANION GAP 17.5 (8-16); CALCIUM 8.7 mg/dL (8.5-10.1); CARBON DIOXIDE 22.3 mmol/L (21-32); CHLORIDE 104 mmol/L (98-107); CREATININE 1.7 mg/dL (0.6-1.3); GLUCOSE 312 mg/dL (74-106); POTASSIUM 4.8 mmol/L (3.5-5.1); SODIUM SERUM 139 mmol/L (136-145)
[2023-07-07 12:14] LABS: UREA NITROGEN, BLOOD 62 mg/dL (7-18)
[2023-07-07] MEDS ORDERED: INTUBATION KIT MC ONE (12:31)
[2023-07-07 12:32] LABS: LACTIC ACID 4.7 mmol/L (0.4-2.0)
[2023-07-07 12:38] LABS: ALANINE AMINOTRANSFERASE 16 U/L (12-78); ALKALINE PHOSPHATASE 120 U/L (50-136); ASPARTATE AMINOTRANSFERASE 20 U/L (15-37); CREATINE KINASE, TOTAL 458 U/L (39-308); TOTAL BILIRUBIN 0.4 mg/dL (0.0-1.0); TOTAL PROTEIN, SERUM 6.7 g/dL (6.4-8.2)
[2023-07-07 12:40] VITALS: BP 130/58; PULSE 112; O2SAT 100
[2023-07-07 13:44] LABS: INR 1.08 (0.8-1.2); PARTIAL THROMBOPLASTIN TIME 22.7 secs (22-35.6); PROTHROMBIN TIME 11.3 secs (10.8-13.4)
[2023-07-07] MEDS ORDERED: NOREPINEPHRINE 4 MG in DEXTROSE 5% 250 ML IV ONE (13:45)
[2023-07-07 14:02] LABS: APPEARANCE,URINE CLEAR (CLEAR); BILIRUBIN,URINE NEGATIVE (NEGATIVE); BLOOD, URINE 1+ (NEGATIVE); COLOR,URINE YELLOW (YELLOW); LEUKOCYTE ESTERASE ,URINE NEGATIVE (NEGATIVE); NITRITE, URINE NEGATIVE (NEGATIVE); PROTEIN,URINE NEGATIVE (NEGATIVE); UGLUCOSE 3+ (NEGATIVE); UROBILINOGEN,URINE 0.2 EU/dL (0.2 - 1)
[2023-07-07 14:15] VITALS: BP 91/41; PULSE 97; O2SAT 98
[2023-07-07 14:25] LABS: BACTERIA,URINE OCCASSIONAL /HPF (None Seen); RBC,URINE 0-5 /HPF (0-5); SQUAMOUS EPITHELIAL CELL,UR 0-3 (FEW) /LPF (0-3 (FEW)); WBC,URINE 0-5 /HPF (0-5)
[2023-07-07] MEDS ORDERED: ALBUTEROL 0.083% 2.5 MG/3 ML NEBU INH PRN (14:35)
[2023-07-07] MEDS ORDERED: NOREPINEPHRINE 4 MG/4 ML VIAL IV ONE ×4 (14:36→23:40)
[2023-07-07] MEDS ORDERED: DEXTROSE 50% 50 ML SYR IVP PRN (14:50)
[2023-07-07] MEDS ORDERED: PROPOFOL 1000 MG/100 ML PREMIX 100 ML IV ONE ×2 (16:00→20:59)
[2023-07-07] MEDS: BLOOD GLUCOSE MONITORING 1 DEV DEV FS SCH ×2 (17:00→21:49)
[2023-07-07] MEDS: INSULIN LISPRO SLIDING SCALE 100 UNITS/ML VIAL SUBQ PRN (17:16)
[2023-07-07] MEDS: ALBUTEROL 0.083% 2.5 MG/3 ML NEBU INH SCH (19:00)
[2023-07-07 19:55] VITALS: PULSE 80; RESP 30; O2SAT 30
[2023-07-07 19:59] VITALS: BP 71/38; PULSE 77; O2SAT 98
[2023-07-07] MEDS ORDERED: VASOPRESSIN 20 UNITS/ML VIAL ONE ×2 (20:59→21:34)
[2023-07-07 21:57] LABS: BLOOD GAS HCO3 18.7 mmol/L (22-26); BLOOD GAS PCO2 41.9 mmHg (35-45); BLOOD GAS PH 7.267 (7.35-7.45); BLOOD GAS PO2 115.8 mmHg (75-100)
[2023-07-07 21:58] LABS: BLOOD GAS BASE EXCESS -7.7 mmol/L (-2.0-2.0)
[2023-07-07 21:59] LABS: BLOOD GAS O2 SAT% 97.9 % (92.0-98.5)
[2023-07-07] MEDS: DEXT 5% /NACL 0.9% 1,000 ML IV SCH (22:02)
[2023-07-07 22:35] LABS: FLU A ANTIGEN negative (NEGATIVE); FLU B ANTIGEN NEGATIVE (NEGATIVE)
[2023-07-07 23:05] VITALS: BP 105/42; PULSE 80; O2SAT 97
[2023-07-08] VITALS (26 sets, daily range): BP systolic 66–141; BP diastolic 32–91; PULSE 63–95; RESP 19–29; TEMP 96.5–97.3; O2SAT 90–100
[2023-07-08] MEDS ORDERED: NOREPINEPHRINE 4 MG/4 ML VIAL IV ONE ×2 (01:13→04:30)
[2023-07-08] MEDS: ALBUTEROL 0.083% 2.5 MG/3 ML NEBU INH SCH ×3 (01:29→16:15)
[2023-07-08] MEDS: NOREPINEPHRINE 8 MG in DEXTROSE 5% 250 ML IV PRN ×4 (01:45→20:24)
[2023-07-08] MEDS: INSULIN LISPRO SLIDING SCALE 100 UNITS/ML VIAL SUBQ PRN ×7 (02:03→23:57)
[2023-07-08] MEDS: BLOOD GLUCOSE MONITORING 1 DEV DEV FS SCH ×6 (05:00→21:00)
[2023-07-08] MEDS ORDERED: PROPOFOL 1000 MG/100 ML PREMIX 100 ML IV ONE (05:41)
[2023-07-08] MEDS ORDERED: VASOPRESSIN 20 UNITS/ML VIAL ONE (05:46)
[2023-07-08 10:09] LABS: BASOPHILS % (AUTO) 0.2 % (0.0-2.0); HEMOGLOBIN 8.1 g/dL (12.0-18.0); LYMPHOCYTES # (AUTO) 0.7 K/uL (2.0-11.5); LYMPHOCYTES % (AUTO) 5.7 % (20.5-51.1); MEAN CORPUSCULAR HEMOGLOBIN 24 pg (27-31); MEAN CORPUSCULAR HGB CONC 30 g/dL (33-37); MEAN CORPUSCULAR VOLUME 79.2 fL (80-94); MONOCYTES % (AUTO) 8.9 % (1.7-9.3); NEUTROPHILS # (AUTO) 9.9 K/uL (1.8-7.7); NEUTROPHILS % (AUTO) 85.2 % (42.2-75.2); PLATELET COUNT (AUTO) 224 K/uL (140-450); RED BLOOD CELL COUNT(AUTO) 3.41 MIL/uL (4.20-6.10); RED CELL DISTRIBUTION WIDTH 21.3 % (11.6-13.7); WHITE BLOOD COUNT (AUTO) 11.6 K/uL (4.8-10.8)
[2023-07-08] MEDS: DEXT 5% /NACL 0.9% 1,000 ML IV SCH (11:02)
[2023-07-08] MEDS: PROPOFOL 1000 MG/100 ML PREMIX 100 ML IV PRN ×2 (13:34→20:17)
[2023-07-08] MEDS: NACL 0.9% 1,000 ML IV SCH (13:35)
[2023-07-08] MEDS: VASOPRESSIN 20 UNITS in NACL 0.9% 250 ML IV SCH ×2 (15:12→23:46)
[2023-07-08 15:13] LABS: ALANINE AMINOTRANSFERASE 102 U/L (12-78); ALBUMIN 2.5 g/dL (3.4-5.0); ALKALINE PHOSPHATASE 102 U/L (50-136); ANION GAP 14.9 (8-16); ASPARTATE AMINOTRANSFERASE 409 U/L (15-37); CALCIUM 7.4 mg/dL (8.5-10.1); CARBON DIOXIDE 23.2 mmol/L (21-32); CHLORIDE 108 mmol/L (98-107); GLUCOSE 391 mg/dL (74-106); MAGNESIUM 2.2 mg/dL (1.8-2.4); POTASSIUM 5.1 mmol/L (3.5-5.1); SODIUM SERUM 141 mmol/L (136-145); TOTAL BILIRUBIN 0.6 mg/dL (0.0-1.0)
[2023-07-08 15:16] LABS: BASOPHILS % (AUTO) 0.2 % (0.0-2.0); HEMATOCRIT 27.6 % (36-52); HEMOGLOBIN 8.5 g/dL (12.0-18.0); LYMPHOCYTES # (AUTO) 0.8 K/uL (2.0-11.5); LYMPHOCYTES % (AUTO) 5.5 % (20.5-51.1); MEAN CORPUSCULAR HEMOGLOBIN 24 pg (27-31); MEAN CORPUSCULAR HGB CONC 31 g/dL (33-37); MONOCYTES # (AUTO) 1.4 K/uL (0.8-1.0); MONOCYTES % (AUTO) 9.3 % (1.7-9.3); PLATELET COUNT (AUTO) 234 K/uL (140-450); RED BLOOD CELL COUNT(AUTO) 3.54 MIL/uL (4.20-6.10); RED CELL DISTRIBUTION WIDTH 21.2 % (11.6-13.7); WHITE BLOOD COUNT (AUTO) 15.3 K/uL (4.8-10.8)
[2023-07-08 15:29] LABS: UREA NITROGEN, BLOOD 61 mg/dL (7-18)
[2023-07-08] MEDS ORDERED: FOAM DRESSING TP PRN (16:10)
[2023-07-08] MEDS: FOAM DRESSING TP SCH (18:00)
[2023-07-09] VITALS (35 sets, daily range): BP systolic 88–126; BP diastolic 48–91; PULSE 75–111; RESP 20–31; TEMP 97.2–98.6; O2SAT 92–100
[2023-07-09] MEDS: ALBUTEROL 0.083% 2.5 MG/3 ML NEBU INH SCH ×4 (00:16→19:14)
[2023-07-09] MEDS: NACL 0.9% 1,000 ML IV SCH ×2 (01:30→14:28)
[2023-07-09] MEDS: PROPOFOL 1000 MG/100 ML PREMIX 100 ML IV PRN ×4 (02:51→22:34)
[2023-07-09] MEDS: BLOOD GLUCOSE MONITORING 1 DEV DEV FS SCH ×5 (04:00→16:22)
[2023-07-09 06:09] LABS: BASOPHILS % (AUTO) 0.2 % (0.0-2.0); HEMATOCRIT 23.1 % (36-52); HEMOGLOBIN 7.1 g/dL (12.0-18.0); LYMPHOCYTES # (AUTO) 0.8 K/uL (2.0-11.5); MEAN CORPUSCULAR HEMOGLOBIN 24 pg (27-31); MEAN CORPUSCULAR HGB CONC 31 g/dL (33-37); MEAN CORPUSCULAR VOLUME 77.7 fL (80-94); MONOCYTES % (AUTO) 9.4 % (1.7-9.3); NEUTROPHILS # (AUTO) 9.3 K/uL (1.8-7.7); NEUTROPHILS % (AUTO) 83.4 % (42.2-75.2); PLATELET COUNT (AUTO) 161 K/uL (140-450); RED BLOOD CELL COUNT(AUTO) 2.98 MIL/uL (4.20-6.10); RED CELL DISTRIBUTION WIDTH 21.2 % (11.6-13.7); WHITE BLOOD COUNT (AUTO) 11.1 K/uL (4.8-10.8)
[2023-07-09 06:45] LABS: ALANINE AMINOTRANSFERASE 115 U/L (12-78); ALBUMIN 2.1 g/dL (3.4-5.0); ALKALINE PHOSPHATASE 88 U/L (50-136); ANION GAP 12.8 (8-16); ASPARTATE AMINOTRANSFERASE 350 U/L (15-37); CALCIUM 7.4 mg/dL (8.5-10.1); CARBON DIOXIDE 24.3 mmol/L (21-32); CHLORIDE 113 mmol/L (98-107); CREATININE 1.7 mg/dL (0.6-1.3); GLUCOSE 160 mg/dL (74-106); MAGNESIUM 2.5 mg/dL (1.8-2.4); POTASSIUM 4.1 mmol/L (3.5-5.1); SODIUM SERUM 146 mmol/L (136-145); TOTAL BILIRUBIN 0.4 mg/dL (0.0-1.0); TOTAL PROTEIN, SERUM 5.6 g/dL (6.4-8.2); UREA NITROGEN, BLOOD 55 mg/dL (7-18)
[2023-07-09] MEDS: VASOPRESSIN 20 UNITS in NACL 0.9% 250 ML IV SCH (08:28)
[2023-07-09] MEDS: INSULIN LISPRO SLIDING SCALE 100 UNITS/ML VIAL SUBQ PRN ×2 (13:45→16:30)
[2023-07-09] MEDS: FOAM DRESSING TP SCH (18:00)
[2023-07-10] VITALS (34 sets, daily range): BP systolic 84–145; BP diastolic 46–87; PULSE 90–119; RESP 21–42; TEMP 98–98.7; O2SAT 89–98
[2023-07-10] MEDS: INSULIN LISPRO SLIDING SCALE 100 UNITS/ML VIAL SUBQ PRN ×5 (00:10→23:30)
[2023-07-10] MEDS: BLOOD GLUCOSE MONITORING 1 DEV DEV FS SCH ×5 (00:15→23:31)
[2023-07-10] MEDS: ALBUTEROL 0.083% 2.5 MG/3 ML NEBU INH SCH ×4 (01:39→19:32)
[2023-07-10] MEDS: NACL 0.9% 1,000 ML IV SCH ×2 (05:16→17:56)
[2023-07-10 05:50] LABS: BASOPHILS % (AUTO) 0.1 % (0.0-2.0); HEMOGLOBIN 7.3 g/dL (12.0-18.0); LYMPHOCYTES # (AUTO) 0.7 K/uL (2.0-11.5); LYMPHOCYTES % (AUTO) 3.9 % (20.5-51.1); MEAN CORPUSCULAR HEMOGLOBIN 24 pg (27-31); MEAN CORPUSCULAR HGB CONC 30 g/dL (33-37); MEAN CORPUSCULAR VOLUME 78.5 fL (80-94); MONOCYTES # (AUTO) 1.4 K/uL (0.8-1.0); MONOCYTES % (AUTO) 8.4 % (1.7-9.3); NEUTROPHILS % (AUTO) 87.6 % (42.2-75.2); PLATELET COUNT (AUTO) 158 K/uL (140-450); RED BLOOD CELL COUNT(AUTO) 3.06 MIL/uL (4.20-6.10); RED CELL DISTRIBUTION WIDTH 21.7 % (11.6-13.7); WHITE BLOOD COUNT (AUTO) 17.1 K/uL (4.8-10.8)
[2023-07-10 06:57] LABS: ALANINE AMINOTRANSFERASE 141 U/L (12-78); ALBUMIN 2.1 g/dL (3.4-5.0); ALKALINE PHOSPHATASE 102 U/L (50-136); ANION GAP 15.1 (8-16); ASPARTATE AMINOTRANSFERASE 361 U/L (15-37); CALCIUM 7.7 mg/dL (8.5-10.1); CARBON DIOXIDE 23.6 mmol/L (21-32); CHLORIDE 116 mmol/L (98-107); CREATININE 1.4 mg/dL (0.6-1.3); GLUCOSE 217 mg/dL (74-106); MAGNESIUM 2.5 mg/dL (1.8-2.4); POTASSIUM 3.7 mmol/L (3.5-5.1); SODIUM SERUM 151 mmol/L (136-145); TOTAL BILIRUBIN 0.5 mg/dL (0.0-1.0); TOTAL PROTEIN, SERUM 6.2 g/dL (6.4-8.2); UREA NITROGEN, BLOOD 48 mg/dL (7-18)
[2023-07-10 15:12] LABS: HEMATOCRIT 25.6 % (36-52); HEMOGLOBIN 7.7 g/dL (12.0-18.0); LYMPHOCYTES # (AUTO) 0.4 K/uL (2.0-11.5); LYMPHOCYTES % (AUTO) 2.8 % (20.5-51.1); MEAN CORPUSCULAR HEMOGLOBIN 24 pg (27-31); MEAN CORPUSCULAR HGB CONC 30 g/dL (33-37); MEAN CORPUSCULAR VOLUME 78.4 fL (80-94); MONOCYTES # (AUTO) 1.4 K/uL (0.8-1.0); NEUTROPHILS # (AUTO) 13.8 K/uL (1.8-7.7); NEUTROPHILS % (AUTO) 88.2 % (42.2-75.2); PLATELET COUNT (AUTO) 177 K/uL (140-450); RED BLOOD CELL COUNT(AUTO) 3.26 MIL/uL (4.20-6.10); RED CELL DISTRIBUTION WIDTH 21.9 % (11.6-13.7); WHITE BLOOD COUNT (AUTO) 15.6 K/uL (4.8-10.8)
[2023-07-10] MEDS ORDERED: VANCOMYCIN PER PHARMACY MC PRN (17:50)
[2023-07-10] MEDS ORDERED: VANCOMYCIN 1,000 MG in DEXTROSE 5% 250 ML IV SCH (18:00)
[2023-07-10] MEDS: FOAM DRESSING TP SCH (18:19)
[2023-07-10] MEDS: PROPOFOL 1000 MG/100 ML PREMIX 100 ML IV PRN (18:51)
[2023-07-10] MEDS: PIPERACILLIN/TAZOBACTAM 3.375 GM in DEXTROSE 5% 50 ML IV SCH (20:36)
[2023-07-10] MEDS ORDERED: VANCOMYCIN 1GM/DEXT 5% PREMIX 200 ML IV SCH (21:00)
[2023-07-11] VITALS (49 sets, daily range): BP systolic 78–108; BP diastolic 45–85; PULSE 69–105; RESP 13–33; TEMP 97.1–98.9; O2SAT 90–97
[2023-07-11] MEDS: ALBUTEROL 0.083% 2.5 MG/3 ML NEBU INH SCH ×4 (01:00→19:33)
[2023-07-11] MEDS: PROPOFOL 1000 MG/100 ML PREMIX 100 ML IV PRN ×4 (02:25→22:05)
[2023-07-11] MEDS ORDERED: VASOPRESSIN 20 UNITS/ML VIAL ONE (04:54)
[2023-07-11] MEDS: VASOPRESSIN 20 UNITS in NACL 0.9% 250 ML IV SCH ×2 (05:00→17:08)
[2023-07-11] MEDS: PIPERACILLIN/TAZOBACTAM 3.375 GM in DEXTROSE 5% 50 ML IV SCH (05:00)
[2023-07-11] MEDS: NACL 0.9% 1,000 ML IV SCH (05:07)
[2023-07-11] MEDS: INSULIN LISPRO SLIDING SCALE 100 UNITS/ML VIAL SUBQ PRN ×4 (05:19→23:22)
[2023-07-11] MEDS: BLOOD GLUCOSE MONITORING 1 DEV DEV FS SCH ×4 (05:21→23:23)
[2023-07-11 07:20] LABS: ALANINE AMINOTRANSFERASE 118 U/L (12-78); ALBUMIN 1.7 g/dL (3.4-5.0); ALKALINE PHOSPHATASE 115 U/L (50-136); ANION GAP 14.7 (8-16); ASPARTATE AMINOTRANSFERASE 167 U/L (15-37); CALCIUM 8.1 mg/dL (8.5-10.1); CARBON DIOXIDE 27.3 mmol/L (21-32); CHLORIDE 118 mmol/L (98-107); CREATININE 2.2 mg/dL (0.6-1.3); GLUCOSE 272 mg/dL (74-106); MAGNESIUM 3.3 mg/dL (1.8-2.4); SODIUM SERUM 155 mmol/L (136-145); TOTAL BILIRUBIN 0.4 mg/dL (0.0-1.0); TOTAL PROTEIN, SERUM 6.2 g/dL (6.4-8.2)
[2023-07-11 07:28] LABS: UREA NITROGEN, BLOOD 62 mg/dL (7-18)
[2023-07-11 08:03] LABS: BASOPHILS % (AUTO) 0.1 % (0.0-2.0); EOSINOPHILS % (AUTO) 0.1 % (0.0-4.0); HEMATOCRIT 26.3 % (36-52); HEMOGLOBIN 7.7 g/dL (12.0-18.0); LYMPHOCYTES % (AUTO) 6.1 % (20.5-51.1); MEAN CORPUSCULAR HEMOGLOBIN 24 pg (27-31); MEAN CORPUSCULAR HGB CONC 29 g/dL (33-37); MEAN CORPUSCULAR VOLUME 81.8 fL (80-94); MONOCYTES # (AUTO) 1.6 K/uL (0.8-1.0); MONOCYTES % (AUTO) 9.9 % (1.7-9.3); NEUTROPHILS # (AUTO) 13.3 K/uL (1.8-7.7); NEUTROPHILS % (AUTO) 83.8 % (42.2-75.2); PLATELET COUNT (AUTO) 181 K/uL (140-450); RED BLOOD CELL COUNT(AUTO) 3.22 MIL/uL (4.20-6.10); RED CELL DISTRIBUTION WIDTH 21.9 % (11.6-13.7); WHITE BLOOD COUNT (AUTO) 15.9 K/uL (4.8-10.8)
[2023-07-11] MEDS ORDERED: VANCOMYCIN 1,000 MG in DEXTROSE 5% 250 ML IV SCH (10:00)
[2023-07-11] MEDS: NACL 0.45% 1,000 ML IV SCH ×2 (10:46→23:03)
[2023-07-11] MEDS: PIPERACILLIN/TAZOBACTAM 2.25 GM in DEXTROSE 5% 50 ML IV SCH ×2 (14:04→21:03)
[2023-07-11 15:09] LABS: EOSINOPHILS # (AUTO) 0.1 K/uL (0-0.4); EOSINOPHILS % (AUTO) 1.6 % (0.0-4.0); LYMPHOCYTES # (AUTO) 0.3 K/uL (2.0-11.5); LYMPHOCYTES % (AUTO) 5.4 % (20.5-51.1); MEAN CORPUSCULAR HEMOGLOBIN 25 pg (27-31); MEAN CORPUSCULAR HGB CONC 28 g/dL (33-37); MEAN CORPUSCULAR VOLUME 89.2 fL (80-94); MONOCYTES # (AUTO) 0.4 K/uL (0.8-1.0); NEUTROPHILS # (AUTO) 5.1 K/uL (1.8-7.7); PLATELET COUNT (AUTO) 84 K/uL (140-450); RED BLOOD CELL COUNT(AUTO) 1.51 MIL/uL (4.20-6.10); RED CELL DISTRIBUTION WIDTH 23.3 % (11.6-13.7); WHITE BLOOD COUNT (AUTO) 5.9 K/uL (4.8-10.8)
[2023-07-11 15:14] LABS: HEMOGLOBIN 3.8 g/dL (12.0-18.0)
[2023-07-11 15:15] LABS: HEMATOCRIT 13.5 % (36-52)
[2023-07-11 16:17] LABS: BASOPHILS % (AUTO) 0.1 % (0.0-2.0); EOSINOPHILS % (AUTO) 0.2 % (0.0-4.0); HEMATOCRIT 24.6 % (36-52); LYMPHOCYTES # (AUTO) 0.5 K/uL (2.0-11.5); LYMPHOCYTES % (AUTO) 7.8 % (20.5-51.1); MEAN CORPUSCULAR HEMOGLOBIN 24 pg (27-31); MEAN CORPUSCULAR HGB CONC 29 g/dL (33-37); MEAN CORPUSCULAR VOLUME 84.2 fL (80-94); MONOCYTES # (AUTO) 0.4 K/uL (0.8-1.0); MONOCYTES % (AUTO) 7.1 % (1.7-9.3); NEUTROPHILS # (AUTO) 5.4 K/uL (1.8-7.7); NEUTROPHILS % (AUTO) 84.8 % (42.2-75.2); PLATELET COUNT (AUTO) 92 K/uL (140-450); RED BLOOD CELL COUNT(AUTO) 2.93 MIL/uL (4.20-6.10); WHITE BLOOD COUNT (AUTO) 6.3 K/uL (4.8-10.8)
[2023-07-11 16:26] LABS: HEMOGLOBIN 7.1 g/dL (12.0-18.0)
[2023-07-11] MEDS: NOREPINEPHRINE 8 MG in DEXTROSE 5% 250 ML IV PRN (17:10)
[2023-07-11] MEDS: FOAM DRESSING TP SCH (18:57)
[2023-07-12] VITALS (31 sets, daily range): BP systolic 84–146; BP diastolic 39–64; PULSE 0–98; RESP 18–25; TEMP 95.9–98.1; O2SAT 90–95
[2023-07-12] MEDS: ALBUTEROL 0.083% 2.5 MG/3 ML NEBU INH SCH ×3 (00:35→13:59)
[2023-07-12] MEDS: VASOPRESSIN 20 UNITS in NACL 0.9% 250 ML IV SCH (02:15)
[2023-07-12] MEDS: PROPOFOL 1000 MG/100 ML PREMIX 100 ML IV PRN (04:21)
[2023-07-12] MEDS: PIPERACILLIN/TAZOBACTAM 2.25 GM in DEXTROSE 5% 50 ML IV SCH ×2 (04:21→12:46)
[2023-07-12] MEDS: NACL 0.45% 1,000 ML IV SCH (04:23)
[2023-07-12] MEDS: INSULIN LISPRO SLIDING SCALE 100 UNITS/ML VIAL SUBQ PRN ×2 (05:19→13:27)
[2023-07-12] MEDS: BLOOD GLUCOSE MONITORING 1 DEV DEV FS SCH ×3 (05:21→18:00)
[2023-07-12 07:03] LABS: BASOPHILS % (AUTO) 0.1 % (0.0-2.0); EOSINOPHILS % (AUTO) 0.3 % (0.0-4.0); HEMATOCRIT 23.9 % (36-52); LYMPHOCYTES % (AUTO) 9.4 % (20.5-51.1); MEAN CORPUSCULAR HEMOGLOBIN 25 pg (27-31); MEAN CORPUSCULAR HGB CONC 29 g/dL (33-37); MEAN CORPUSCULAR VOLUME 85.4 fL (80-94); MONOCYTES # (AUTO) 0.9 K/uL (0.8-1.0); MONOCYTES % (AUTO) 8.4 % (1.7-9.3); NEUTROPHILS # (AUTO) 8.5 K/uL (1.8-7.7); NEUTROPHILS % (AUTO) 81.8 % (42.2-75.2); PLATELET COUNT (AUTO) 127 K/uL (140-450); WHITE BLOOD COUNT (AUTO) 10.4 K/uL (4.8-10.8)
[2023-07-12 07:29] LABS: ALANINE AMINOTRANSFERASE 128 U/L (12-78); ALBUMIN 1.4 g/dL (3.4-5.0); ALKALINE PHOSPHATASE 106 U/L (50-136); ANION GAP 19.8 (8-16); ASPARTATE AMINOTRANSFERASE 171 U/L (15-37); CALCIUM 7.7 mg/dL (8.5-10.1); CARBON DIOXIDE 21.7 mmol/L (21-32); CHLORIDE 112 mmol/L (98-107); CREATININE 3.9 mg/dL (0.6-1.3); GLUCOSE 365 mg/dL (74-106); MAGNESIUM 3.6 mg/dL (1.8-2.4); SODIUM SERUM 147 mmol/L (136-145); TOTAL BILIRUBIN 0.7 mg/dL (0.0-1.0); TOTAL PROTEIN, SERUM 5.7 g/dL (6.4-8.2)
[2023-07-12 07:30] LABS: HEMOGLOBIN 6.9 g/dL (12.0-18.0)
[2023-07-12 07:34] LABS: POTASSIUM 6.5 mmol/L (3.5-5.1); UREA NITROGEN, BLOOD 88 mg/dL (7-18)
[2023-07-12] MEDS ORDERED: SODIUM POLYSTYRENE 15 GM/60 ML UDBTL PO ONE (08:25)
[2023-07-12] MEDS: NOREPINEPHRINE 8 MG in DEXTROSE 5% 250 ML IV PRN ×2 (08:46→15:25)
[2023-07-12] MEDS ORDERED: metOLazone 5 MG TAB PO SCH (09:00)
[2023-07-12] MEDS ORDERED: FUROSEMIDE 100 MG/10 ML VIAL IV SCH (09:00)
[2023-07-12] MEDS ORDERED: MORPHINE SULFATE 50 MG in NACL 0.9% 45 ML IV PRN (14:20)
[2023-07-12] MEDS ORDERED: LORazepam 2 MG/ML VIAL IVP PRN (14:25)
[2023-07-12] MEDS ORDERED: HYOSCYAMINE 0.125 MG TAB SL PRN (14:25)
[2023-07-12] MEDS ORDERED: ONDANSETRON 4 MG/2 ML VIAL IVP PRN (14:25)
[2023-07-12] MEDS ORDERED: GLYCOPYRROLATE 0.2 MG/ML VIAL IV SCH (15:03)
[2023-07-12] MEDS: FOAM DRESSING TP SCH (18:00)
== END 2023-07-12 16:09 ==
LOC: MED 09:56 → MIC 14:48 → MTU 14:48 → MIC 22:48
PROVIDERS: ADMIT Internal Medicine; ATTEND Internal Medicine
PROC: 05HY33Z Insertion of Infusion Device into Upper Vein, Percutaneous Approach (ICD-10-PCS; principal; 2023-07-07)
PROC: 5A1955Z Respiratory Ventilation, Greater than 96 Consecutive Hours (ICD-10-PCS; 2023-07-07)
PROC: B54NZZA Ultrasonography of Left Upper Extremity Veins, Guidance (ICD-10-PCS; 2023-07-07)
PROC: 0BH17EZ Insertion of Endotracheal Airway into Trachea, Via Natural or Artificial Opening (ICD-10-PCS; 2023-07-07)
PROC: 30233N1 Transfusion of Nonautologous Red Blood Cells into Peripheral Vein, Percutaneous Approach (ICD-10-PCS; 2023-07-08)
DX: I21.4 Non-ST elevation (NSTEMI) myocardial infarction (principal); J96.00 Acute respiratory failure, unspecified whether with hypoxia or hypercapnia; E87.0 Hyperosmolality and hypernatremia; N17.9 Acute kidney failure, unspecified; D64.9 Anemia, unspecified; I46.8 Cardiac arrest due to other underlying condition; I25.10 Atherosclerotic heart disease of native coronary artery without angina pectoris; E66.9 Obesity, unspecified; E78.5 Hyperlipidemia, unspecified; I48.0 Paroxysmal atrial fibrillation; I12.9 Hypertensive chronic kidney disease with stage 1 through stage 4 chronic kidney disease, or unspecified chronic kidney disease; N18.9 Chronic kidney disease, unspecified; Z20.822 Contact with and (suspected) exposure to COVID-19; I45.10 Unspecified right bundle-branch block; E87.5 Hyperkalemia; E03.9 Hypothyroidism, unspecified; Z66 Do not resuscitate; Z79.899 Other long term (current) drug therapy; Z79.01 Long term (current) use of anticoagulants; Z68.27 Body mass index [BMI] 27.0-27.9, adult; R57.0 Cardiogenic shock; R57.1 Hypovolemic shock
CPT/HCPCS: 31500; 36415; 36430; 36600; 51702; 70450; 71045; 71275; 76770; 80053; 80202; 81001; 82550; 82553; 82803; 82948; 83605; 83735; 83880; 84484; 85025; 85610; 85730; 86886; 86900; 86901; 86920; 87040; 87081; 87086; 93005; 94003; 94640; 96374; 96375; 99291; 99292; J1815; J1940; J2270; J2405; J2543; J2704; J3370; J3490; J7030; J7060; J7613; P9016; Q0092; Q9967